=== PATIENT | female | born 2000 ===

== ENCOUNTER 2021-01-21 16:04 | Outpatient (CLI) | payer OTHER, SELFPAY ==
--- NOTE | 2021-01-21 16:00 | RT.EKG_ITS ---
APPROVED REPORT Exam: Resting ECG Reason for Exam: Chest pain Patient Location: O HR:69 bpm ECG Measurements Heart Rate 69 AXIS GA 96 P 45 QRSd 88 QRS 51 QT 390 T 43 QTc 420 Conclusion Sinus rhythm...normal P axis, V-rate 60- 99 Normal Electrocardiogram
== END 2021-01-21 16:05 | disposition home or self-care (01) ==
LOC: DI.CM 16:05
PROVIDERS: Visit Provider Nurse Practitioner Family
DX: R07.89 Other chest pain (principal)
CPT/HCPCS: 93010

== ENCOUNTER 2021-01-21 19:29 | Outpatient (REF) | payer OTHER, SELFPAY ==
[2021-01-21 21:28] LABS: Abs Immature Grans 0.02 10^3/uL (0.0-0.06); Absolute Basophil Count 0.05 10^3/uL (0.0-0.2); Absolute Eosinophil Count 0.17 10^3/uL (0.0-0.7); Absolute Lymphocyte Count 1.47 10^3/uL (1.2-3.4); Absolute Monocyte Count 0.71 10^3/uL (0.1-0.8); Absolute Neutrophil Count 4.64 10^3/uL (1.2-6.7); Basophils % 0.7; Eosinophils % 2.4; HCT 38.4 % (36.0-46.0); HGB 12.1 g/dL (11.2-15.7); Immature Grans % 0.3; Lymphocytes % 20.8; MCH 28.5 pg (27.0-33.0); MCHC 31.5 % (32.0-36.0); MCV 90.6 fL (80-95); MPV 11.4 fL (8.0-11.0); Monocytes % 10.1; Neutrophils % 65.7; Nucleated RBC 0 %; Platelet Count 308 10^3/uL (130-400); RBC 4.24 10^6/uL (3.93-5.22); RDW 16.2 % (11.7-14.6); WBC 7.06 10^3/uL (4.4-10.8)
[2021-01-21 22:07] LABS: Bilirubin Negative (Negative); Blood Small (Negative); Clarity Sl Cloudy (Clear); Glucose Negative (Negative); Ketones Negative (Negative); Leukocyte Esterase Negative (Negative); Nitrite Negative (Negative); Specific Gravity >= 1.030 (1.005-1.025); Urobilinogen 0.2 EU/dL (Up TO 0.2); pH 7.5 (5-8)
[2021-01-21 22:15] LABS: WBC Negative HPF (0-5)
[2021-01-21 22:16] LABS: Bacteria Few HPF (Negative); C & S Indicated? No; Casts Negative LPF (Negative); Crystals Few Amorphous HPF (Negative); Epithelial Cells Few HPF (Negative); Mucus Negative (Negative)
[2021-01-22 06:39] LABS: ALT 21 U/L (14-59); AST 17 U/L (15-37); Albumin 3.7 g/dL (3.4-5.0); Alkaline Phosphatase 53 U/L (46-116); BUN 13 mg/dL (7-18); Bilirubin, Total 0.2 mg/dL (0.2-1.0); CREATININE 0.9 mg/dL (0.55-1.02); Calcium 9.4 mg/dL (8.5-10.1); Chloride 107 mmol/L (98-107); Glucose 74 mg/dL (74-106); Lipase 139 U/L (73-393); Sodium 142 mmol/L (136-145); Total Protein 7.2 g/dL (6.4-8.2)
[2021-01-23 12:08] LABS: COVID-19 RT-PCR UVMMC Result Negative (Negative)
== END 2021-01-21 19:30 | disposition home or self-care (01) ==
LOC: LBN 19:29
PROVIDERS: PCP Registered Nurse; Visit Provider Nurse Practitioner Family
DX: R10.11 Right upper quadrant pain (principal); Z20.822 Contact with and (suspected) exposure to COVID-19
CPT/HCPCS: 80053; 83690; U0003; 81003; 81015; 85025